=== PATIENT | male | born 1990 | race Caucasian/White ===

== ENCOUNTER 2016-10-15 16:08 | Emergency (ER) | payer OTHER ==
[~2016-10-15] VITALS: Ht 177.8 cm; Wt 90.7 kg
== END 2016-10-15 16:19 | disposition expired ==
LOC: ED 16:08 → EDBD 16:08 → ED 16:19
DX: I46.9 Cardiac arrest, cause unspecified (principal)
CPT/HCPCS: J0171; J3490; J7030